=== PATIENT | male | born 1985 | race Caucasian/White ===

== ENCOUNTER 2019-08-20 11:38 | Emergency (ER) | payer OTHER ==
[2019-08-20 12:40] VITALS: BP 123/75
--- NOTE | 2019-08-20 13:44 | ED ---
Bite Injury/Animal - History of Current Complaint Chief Complaint: UCBiteInjury Stated Complaint: DOG BITE RT LEG Time Seen by Provider: 08/20/19 13:41 Pain Intensity: 0 - Allergies/Home Medications Allergies/Adverse Reactions: Allergies Allergy/AdvReac Type Severity Reaction Status Date / Time Penicillins Allergy Unknown Verified 08/20/19 12:33 Reaction Details Home Medications: Home Medications NK [No Home Medications Reported] 08/20/19 [History Confirmed 08/20/19] PMH/Surg Hx/FS Hx/Imm Hx Infectious Disease History: No Infectious Disease History: Denies: Traveled Outside the [place] in Last 30 Days - Social History Alcohol Use: None Substance Use Type: Reports: None Smoking Status (MU): Heavy Every Day Tobacco Smoker Type: Smokeless Tobacco Amount Used/How Often: 1 can daily Length of Time of Smoking/Using Tobacco: Since Age 21 Physical Exam Vital Signs On Initial Exam: Initial Vitals Temp Pulse Resp BP Pulse Ox 98.3 F 74 16 123/75 99 08/20/19 12:32 08/20/19 12:32 08/20/19 12:32 08/20/19 12:32 08/20/19 12:32 Diagnostics - Vital Signs Vital Signs Temp Pulse Resp BP Pulse Ox 08/20/19 12:32 98.3 F 74 16 123/75 99 - Laboratory Lab Statement: Any lab studies that have been ordered have been reviewed, and results considered in the medical decision making process. Discharge ED - Discharge Plan Referrals: No Primary Care Phys,NOPCP [Primary Care Provider] -
[2019-08-20] MEDS ORDERED: Lidocaine 1% MPF ** 5 ML VIAL INJ ONE (13:59)
--- NOTE | 2019-08-20 14:06 | UC ---
Bite Injury/Animal HPI - HPI Summary HPI Summary: 33 y/o male presents to the urgent care c/o "I got a hole in my leg 'cause of a dog." Dog bit right lower leg at work this morning at 1000. Abrasions and a ~2x1cm laceration vs. loss of skin to right lateral lower leg. Scant active bleeding. Does not know when his last tetanus vaccination was. Patient stated unknown allergic reaction to penicillin as a child. Wound irrigation with ~250ml NS and covered with a non stick dressing. - History of Current Complaint Chief Complaint: UCBiteInjury Stated Complaint: DOG BITE RT LEG Time Seen by Provider: 08/20/19 13:41 Hx Obtained From: Patient Pain Intensity: 0 - Allergies/Home Medications Allergies/Adverse Reactions: Allergies Allergy/AdvReac Type Severity Reaction Status Date / Time Penicillins Allergy Unknown Verified 08/20/19 12:33 Reaction Details PMH/Surg Hx/FS Hx/Imm Hx - Surgical History Surgical History: None - Social History Alcohol Use: None Substance Use Type: None Smoking Status (MU): Heavy Every Day Tobacco Smoker Type: Smokeless Tobacco Amount Used/How Often: 1 can daily Length of Time of Smoking/Using Tobacco: Since Age 21 - Immunization History Most Recent Tetanus Shot: "I couldn't tell ya'." Physical Exam - Summary Physical Exam Summary: Vital Signs Reviewed: Yes General: well developed, well nourished male sitting in the examining table w/o any apparent distress Eye Exam: Normal Eyes: Positive: Conjunctiva Clear - PERRLA, EOMI, fundi grossly normal ENT: Positive: Normal ENT inspection, Hearing grossly normal, Pharynx normal, TMs normal Neck: Positive: Supple, Nontender, No Lymphadenopathy Respiratory: Positive: Chest non-tender, Lungs clear, Normal breath sounds, No respiratory distress Cardiovascular: Positive: RRR, No Murmur, Pulses Normal, Brisk Capillary Refill Abdomen Description: Positive: Nontender, No Organomegaly, Soft. Negative: CVA Tenderness (R), CVA Tenderness (L) Bowel Sounds: Positive: Present Musculoskeletal: Positive: Strength Intact, ROM Intact, No Edema Neurological: Positive: Alert, Muscle Tone Normal Psychological Exam: Normal Skin: Positive:Lateral side of mid RT lower leg w/ a triangular linear dog bite about 5cm x 2cm in size , bleeding, no foreign body observed. mild tenderness to palpation, mild ecchymosis around elbow. FROM of RT lower extremity,sensation intact, capillary refill brisk, and pulses WNL. Triage Information Reviewed: Yes Vital Signs: Initial Vital Signs Temp 98.3 F 08/20/19 12:32 Pulse 74 08/20/19 12:32 Resp 16 08/20/19 12:32 BP 123/75 08/20/19 12:32 Pulse Ox 99 08/20/19 12:32 Bite Injury Course/Dx - Course Course Of Treatment: LACERATION PROCEDURE NOTE: . Copious irrigation was done with saline by the nurse and the wound explored. There was no FB or deep structure injury noted. FROM of left forearm. procedure was explained and consent obtained, Timeout performed. The wound was anesthetized with 4 mL of 2% lido/epi with good anesthesia. Sterile drape and prep were don. There were 16 sutures with 5.0 nylon type of suture. The length of the wound after closure was 6.0cm. No debridement done. Pt tolerated the procedure well without adverse effects. Neurovascular intact and FROM. Tdap ordered and applied by nurse. Pt advised to f/u suture removal in 10 days and if any signs of infection develop to immediately return to the urgent care of PCP for further management and treatment. Pt understood and agreed and left the clinic ambulating A&Ox3. - Differential Dx/Diagnosis Differential Diagnosis/HQI/PQRI: Joint Space Infection, Laceration, Rabies Exposure, Superficial Infection, Deep Space Infection Provider Diagnosis: Dog bite of right lower leg Discharge ED - Sign-Out/Discharge Documenting (check all that apply): Patient Departure - D/C home All imaging exams completed and their final reports reviewed: No Studies - Discharge Plan Condition: Stable Disposition: HOME Prescriptions: Bacitracin OINTMENT* 1 applic TOPICAL BID #1 tube DOXYcycline CAP(*) [DOXYcycline 100MG CAP(*)] 100 mg PO BID #20 cap Patient Education Materials: Animal Bite (ED) Referrals: [facility] [Outside] - 2 Days Additional Instructions: 1 Please apply Bacitracin oint over the wound area, avoid sun exposure.Please take full course of antibiotic to avoid resistance. 2- Please Take Ibuprofen PO q6 -8hrs prn for pain and swelling. Apply cold compresses and elevated your leg to decrease swelling. Use the crutches at home to avoid to much weight bearing for a few days. 3- Please notify the Health Department to confirm Dog is UTD w/ immunizations or if just in case you need the Rabbies vaccine or Immunuglobulin 4- You were given the Tadap vaccine today. 5- Please f/u in 2 days to make sure symptoms are improving and you are not developing any infection. Also F/u suture removal in 10-12 days here or w/ your PCP 6 If you develop fever, severe lower leg swelling and leg pain or infection is developing please return to the urgent care or take her to the ER for further management - Billing Disposition and Condition Condition: STABLE Disposition: Home
[2019-08-20] MEDS ORDERED: Tetan/Diph/Pertus SYR(Tdap)* 0.5 ML SYR(BOOSTRIX) use SYR contains LATEX IM ONE (14:31)
== END 2019-08-20 15:24 | disposition home or self-care (01) ==
LOC: UCCORT 11:38
DX: S81.852A Open bite, left lower leg, initial encounter (principal); F17.290 Nicotine dependence, other tobacco product, uncomplicated; Z88.0 Allergy status to penicillin; W54.0XXA Bitten by dog, initial encounter; Y92.9 Unspecified place or not applicable
CPT/HCPCS: 12002; 90471; 90715; 99202; G0463

== ENCOUNTER 2019-08-22 16:06 | Emergency (ER) | payer OTHER ==
[2019-08-22 18:29] VITALS: BP 116/67
--- NOTE | 2019-08-22 18:42 | UC ---
HPI Wound/Suture Re-check - HPI Summary HPI Summary: 33-year-old male presents to urgent care for a wound check of a dog bite to his right lower leg. He was initially seen here on 08/20/2019 for the injury. He was placed on a course of doxycycline which she has been taking as directed. Denies fever, chills, pain, erythema, edema, or drainage from the wound. - History Of Current Complaint Chief Complaint: UCBiteInjury Stated Complaint: F/U DOG BITE 08/20/19 Time Seen by Provider: 08/22/19 18:21 Hx Obtained From: Patient Pain Intensity: 1 - Allergies/Home Medications Allergies/Adverse Reactions: Allergies Allergy/AdvReac Type Severity Reaction Status Date / Time Penicillins Allergy Unknown Verified 08/22/19 18:19 Reaction Details PMH/Surg Hx/FS Hx/Imm Hx Previously Healthy: Yes - Denies significant PMH - Surgical History Surgical History: None - Family History Known Family History: Positive: Non-Contributory - Social History Occupation: Employed Full-time Lives: Alone Alcohol Use: None Substance Use Type: None Smoking Status (MU): Heavy Every Day Tobacco Smoker Type: Smokeless Tobacco Amount Used/How Often: 1 can daily Length of Time of Smoking/Using Tobacco: Since Age 21 - Immunization History Most Recent Tetanus Shot: 08/20/19 Review of Systems All Other Systems Reviewed And Are Negative: Yes Constitutional: Negative: Fever, Chills Skin: Positive: Other - See HPI Respiratory: Positive: Negative Cardiovascular: Positive: Negative Gastrointestinal: Positive: Negative Genitourinary: Positive: Negative Musculoskeletal: Positive: Negative Neurological: Positive: Negative Is Patient Immunocompromised?: No Physical Exam - Summary Physical Exam Summary: GENERAL APPEARANCE: Well developed, well nourished, alert and cooperative, and appears to be in no acute distress. CARDIAC: Normal S1 and S2. No S3, S4 or murmurs. Rhythm is regular. There is no peripheral edema, cyanosis or pallor. Extremities are warm and well perfused. Capillary refill is less than 2 seconds. Peripheral pulses intact. LUNGS: Clear to auscultation without rales, rhonchi, wheezing or diminished breath sounds. ABDOMEN: Positive bowel sounds. Soft, nondistended, nontender. No guarding or rebound. No masses or hepatosplenomegally. MUSKULOSKELETAL: ROM intact to all extremities. No joint erythema or tenderness. Normal muscular development. Normal gait. EXTREMITIES: Multiple superficial healing lacerations and puncture wounds including a V-shaped flap laceration with a single intact interrupted suture at the apex of the wound. Ecchymosis noted to the surrounding tissues. No erythema , edema, or drainage noted. Circulation and sensation intact. SKIN: Skin normal color, texture and turgor with no lesions or eruptions. Triage Information Reviewed: Yes Vital Signs: Initial Vital Signs Temp 99.3 F 08/22/19 18:20 Pulse 75 08/22/19 18:20 Resp 16 08/22/19 18:20 BP 116/67 08/22/19 18:20 Pulse Ox 100 08/22/19 18:20 Vital Signs Reviewed: Yes Course/Dx - Course Course Of Treatment: 33-year-old male presents to urgent care for a wound check of a dog bite to his right lower leg. He was initially seen here on 08/20/2019 for the injury. He was placed on a course of doxycycline which she has been taking as directed. Denies fever, chills, pain, erythema, edema, or drainage from the wound. Afebrile. Vital signs stable. Patient had multiple superficial healing lacerations and puncture wounds including a V-shaped flap laceration with a single intact interrupted suture at the apex of the wound. Ecchymosis noted to the surrounding tissues. No erythema, edema, or drainage noted. Circulation and sensation intact. Reviewed appropriate wound care with the patient. He is to return here in 8 days to have the suture removed. Anticipatory guidance and warning symptoms were reviewed with the patient. Verbalizes understanding and agrees with plan of care. - Differential Dx - Laceration/Wound Differential Diagnoses: Cellulitis, Dehiscence, Healing Wound - Diagnosis Provider Diagnosis: Dog bite of right lower leg, Healing wound Discharge ED - Sign-Out/Discharge Documenting (check all that apply): Patient Departure All imaging exams completed and their final reports reviewed: No Studies - Discharge Plan Condition: Stable Disposition: HOME Patient Education Materials: Animal Bite (ED) Referrals: No Primary Care Phys,NOPCP [Primary Care Provider] - Additional Instructions: Your wound appears to be healing well. Be sure to finish the antibiotic as directed. Clean the wound with a mild soap and water at least once a day. Apply some antibiotic ointment and cover with a bandage. This should be changed at least once a day or any time the dressing becomes wet or soiled. Use acetaminophen (Tylenol) or ibuprofen (Advil, Motrin) according to directions as needed for pain. Return here in 8 days for suture removal. Watch for signs of infection including fever greater than 100.5 F, severe pain not managed with pain medication, redness that spreads, swelling of the hand/ fingers, or pus draining from the wound. Seek immediate medical attention should any of these occur. - Billing Disposition and Condition Condition: STABLE Disposition: Home
== END 2019-08-22 19:01 | disposition home or self-care (01) ==
LOC: UCCORT 16:06
DX: S81.851D Open bite, right lower leg, subsequent encounter (principal); F17.290 Nicotine dependence, other tobacco product, uncomplicated; Z88.0 Allergy status to penicillin; W54.0XXD Bitten by dog, subsequent encounter
CPT/HCPCS: 99212; G0463